=== PATIENT | female | born 1940 | race Caucasian/White ===

== ENCOUNTER 2017-02-03 07:00 | Inpatient (IN) | payer OTHER, BC, MEDICARE ==
[~2017-02-03] VITALS: Ht 171.4 cm; Wt 53.5 kg
[~2017-02-03 07:00] MED LIST: ASPIRIN EC81 M1 PO; COREG6.25 M1 PO; QUINAPRIL HCL10 M1 PO; ZOCOR20 M1 PO
--- NOTE | 2017-02-05 10:41 | Admission Core Measures ---
Acute Coronary Syndrome Inclusion Criteria ACS Diagnosis No Inpatient Core Measures LDL Reminder: If No, please order W/I first 24hr of stay Congestive Heart Failure Inclusion Criteria CHF Diagnosis No Cerebrovascular accident Inclusion Criteria CVA/TIA Diagnosis No Inpatient Core Measures Bedside Swallow Eval Reminder: If BSE failed, place ST order Antithrombotic Reminder: Order Antithrombotic Medication by end of day 2 Antithrombotic Reminder: Document Reason Antithrombotic Not ordered by end of day 2 AFIB/Flutter Reminder: If Present, add to problem list AFIB/Flutter Reminder: Order Anticoag Medication for pts with AFIB/Flutter Atherosclerosis Reminder: If Present, add to problem list LDL Reminder: If No, please order W/I first 24hr of stay PT Order Reminder: If No, please order Venous thromboembolism Inpatient Core Measures VTE Risk Factors: Age > 40, Cancer/chemo/[facility] prophylaxis d/t No contraindications No VTE Pharm Prophylaxis d/t No contraindications Inclusion Criteria - Per Current guidelines, there needs to be overlap - treatment for the first 5 days of Warfarin therapy. - Parenteral Anticoagulation (IV or SC) needs to be - given along with Warfarin therapy. VTE Diagnosis No VTE Type NONE VTE Confirmed by (Test) NONE Problem List As ranked by this Provider includes Assessment & Plan 1. Nodule of right lung HOME MEDS Home Med List Aspirin (Ecotrin*) 81 MG TABLET.DR 1 TAB PO DAILY PROPHO (Reported) Carvedilol (Coreg) 6.25 MG TABLET 1 TAB PO BID HTN (Reported) Quinapril HCl 10 MG TABLET 1 TAB PO DAILY HTN (Reported) Simvastatin (Zocor*) 20 MG TABLET 1 TAB PO DAILY CHOLESTEROL (Reported)
--- NOTE | 2017-02-05 10:56 | RADIOLOGY REPORT ---
EXAMINATION: XR PORTABLE CHEST CLINICAL INFORMATION: Post right middle lobectomy COMPARISON: 01/20/17 TECHNIQUE: Portable frontal view of the chest was obtained. FINDINGS: Monitoring devices overlie the patient. The right chest tube tip projects in the medial right apex. There is kyphosis and rotation toward the left. Calcified tortuous aorta. Calcification of the mitral annulus. There is a left ventricular configuration to the cardiac silhouette which is of overall normal size. There is no large hilar mass. There is metallic suture in the medial right lower chest. No dense consolidation in the remaining right lung. It is possible there is a tiny right apical pneumothorax with a reflection at the level of the upper portion of the posterior right third rib. There is some hypoinflation at the left lower lung. Probable skin fold projects over the periphery of the left lower chest. Embolic material in the left upper abdomen. Arthritic changes both shoulders with probable loose bodies. Partially included lower cervical instrumentation IMPRESSION: Findings consistent with right middle lobectomy. Chest tube in place. There may be a tiny right apical pneumothorax. Hypoinflation left lower lung.
--- NOTE | 2017-02-05 11:00 | Admission Certification ---
Admission Certification Certification Statement - As attending physician, I certify that at the time of - admission, based on clinical presentation, severity of - symptoms, need for further diagnostic testing and - therapeutic interventions, and risk of adverse outcomes - without in-hospital treatment, in my clinical assessment, - this patient requires an acute hospital stay for a minimum - of two nights or longer. I have also considered psychsocial - factors such as support system, advanced age, financial - issues, cognitive issues, and failed out-patient treatments, - past re-admission history, safety of patient, and lack of - compliance as applicable. Specific rationale supporting this admission is: Major chest surgery with intensive care unit stay
--- NOTE | 2017-02-05 11:04 | Operative Report ---
Operative/Inv Procedure Report Surgery Date: 02/05/17 Name of Procedure: Right middle lobectomy with mediastinal lymph node dissection Pre-Operative Diagnosis: Right middle lobe lung cancer Post-Operative Diagnosis: Same Estimated Blood Loss: less than 50ml Surgeon/Medical Information Specialist: RICHA REDDY,MARTHA Mg Anesthesia: general endotracheal tube Operative/Procedure Note Note: After placement of monitoring lines and induction of general anesthesia the double-lumen endotracheal tube was appropriately positioned with fiberoptic bronchoscopy. The patient was placed in the left lateral decubitus position and her right chest was prepped and draped in a sterile fashion. A small posterolateral thoracotomy incision was made and the chest was entered through the fifth intercostal space. The anatomy showed very clear distinction between the right upper middle and lower lobes with very sharp distinction of the major and the minor fissure. Dissection was done at the base and the pulmonary arterial branches to the middle lobe were very directly identified and secured with the Endo HARINDER vascular stapler. There was a very interesting venous drainage which was composed of 2 branches to the superior pulmonary vein and one major trunk to the inferior pulmonary vein. These were both resected with the Endo HARINDER vascular stapler. The minor fissure was completed with the Endo HARINDER thick tissue stapler. Surrounding lymph nodes at the middle lobe bronchus were swept into the specimen and the middle lobe bronchus was secured with the Endo HARINDER medium tissue cartridge. Intraoperative frozen section disclose no evidence of cancer at the bronchial stump. Lymph nodes removed from level for level VII and level IX with division of the inferior pulmonary ligament. His was insufflated under water to 30 mmHg and found to show no air leak. The fissures were sprayed with sealant and hemostasis was achieved with electrocautery and with Surgicel packing. Long-acting rib blocks were placed and the chest was drained with a 28 Turkish straight chest tube. The ribs reapproximated with pericostal sutures. The incision was closed anatomically with running Vicryl suture followed by running Vicryl subcuticular suture. The patient tolerated the procedure well and was brought to recovery room awake and extubated in stable condition. CC: ODMINGO REDDY,NICOLE Flynn
[2017-02-05 13:00] VITALS: BP 122/70
[2017-02-05 15:00] VITALS: BP 116/70
--- NOTE | 2017-02-05 15:31 | NUR ---
PT TRANSFERRED FROM PACU AT 1245. DROWSY BUT EASILY WAKES. TELEPHONE REPORT HAD BEEN RECEIVED AND BEDSIDE UPDATE WAS RECEIVED. RIGHT SIDE CHEST TUBE INTACT TO SUCTION. LEFT RADIAL A-LINE INTACT. MONITOR NSR. POC REVIEWED.
[2017-02-05 17:00] VITALS: BP 138/70
--- NOTE | 2017-02-05 17:27 | PN- Thoracic Surgery ---
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 Objective Vital Signs and I&Os Vital Signs Date Time Temp Pulse Resp B/P B/P Pulse O2 O2 Flow FiO2 Mean Ox Delivery Rate 02/05 1422 Nasal 3.0L Cannula 02/05 1300 96 Nasal 2.0L Cannula Intake & Output 02/05 0802/05 0000 02/04 1600 02/04 0800 02/04 0000 Intake Total Output Total Balance Patient 118 lb Weight Physical Exam: CV: RRR LUNGS: CLEAR ABD: SOFT, +BS EXT: WARM, CMS INTACT CHEST: CHEST TUBE INTACT WITH PLEUR EVAC SUCTION Assessment/Plan Assessment/Plan THORACIC STABLE PLAN CHEST TUBE TO WALL SUCTION TOINGH WEAN O2 ENCOURAGE IS TITRATE PAIN MEDS Core Measures/Miscellaneous Venous Thromboembolism VTE Risk Factors: Age > 40, Surgery VTE Contraindications: No Contraindications VTE Diagnosis: No VTE Type: NONE VTE Confirmed by (Test): NONE Beta Osvaldo Is Beta Osvaldo a Home Med? Yes Antibiotics Is Patient on Antibiotics? Yes
--- NOTE | 2017-02-05 17:47 | Cons- CRCU ---
RONYEVANGELINA 02/05/17 1726: General Information and HPI Consulting Request Date of Consult: 02/05/17 Requested By: Dr. Interiano Reason for Consult: RML lobectomy Source of Information: patient, old records Exam Limitations: clinical condition History of Present Illness: Ms. 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 She was admitted to [facility] for RML lobectomy. Her previous workup and imaging included a PET scan 11/10/16 revealed abnormal FDG activity in a spiculated 1.6 cm right middle lobe pulmonary nodule is most likely malignant in etiology. Increased FDG activity in the inferior right colon appears to be associated with some wall thickening and is suspicious for malignancy or inflammatory bowel disease at this site. A colonoscopy to investigate the increased FDG uptake 12/23/16 did not reveal any right sided colon lesions. She underwent a successful CT-guided right middle lobe lung biopsy 01/20/17 which revealed non- small cell CA. Other workups include negative breast including yearly mamography. She underwent a successful RML lobectomy with no evidence of cancer at the bronchial stump intraoperatively. A chest tube was placed and a post-op CXR revealed a possible tiny right apical PTX. At the time of the interview, she offered no complaints including chest pain, significant dyspnea, palpitations, lightheadedness, n/v or abdominal pain. Allergies/Medications Allergies: Coded Allergies: No Known Allergies (02/01/17) Home Med List: Aspirin (Ecotrin*) 81 MG TABLET.DR 1 TAB PO DAILY PROPHO (Reported) Carvedilol (Coreg) 6.25 MG TABLET 1 TAB PO BID HTN (Reported) Quinapril HCl 10 MG TABLET 1 TAB PO DAILY HTN (Reported) Simvastatin (Zocor*) 20 MG TABLET 1 TAB PO DAILY CHOLESTEROL (Reported) Current Medications: Current Medications Sig/Praveen Start time Last Medication Dose Route Stop Time Status Admin Acetaminophen 1,000 MG .STK-MED ONE 02/05 730 DC IV 02/05 731 Albuterol Sulfate 3 ML Q4 02/05 1800 AC 02/05 INH 1635 Aspirin Buffered 81 MG DAILY 02/06 1000 AC PO Atorvastatin Calcium 10 MG 1700 02/05 1700 AC PO Carvedilol 6.25 MG BID 02/05 2200 AC PO Cefazolin Sodium 2 GM IQ8 02/05 1630 AC N/A 1 UNIT IV 02/06 0029 Dexamethasone 8 MG .STK-MED ONE 02/05 731 DC IM 02/06 732 Docusate Sodium 100 MG BID 02/05 2200 AC PO Fentanyl Citrate 250 MCG .STK-MED ONE 02/05 730 DC IM 02/05 731 Heparin Sodium 5,000 UNIT Q8 02/05 1400 AC (Porcine) SC Hydromorphone HCl 50 MG Q24H PRN 02/05 1100 AC Sodium Chloride 45 ML IV Hydromorphone HCl 2 MG .STK-MED ONE 02/05 730 DC IM 02/05 731 Lisinopril 10 MG DAILY 02/06 1000 AC PO Midazolam HCl 2 MG .STK-MED ONE 02/05 731 DC IM 02/06 732 Ondansetron HCl 8 MG .STK-MED ONE 02/05 731 DC IM 02/06 732 Remifentanil 3 MG .STK-MED ONE 02/05 731 DC IV 02/06 732 Sodium Chloride 1,000 ML Q13H 02/05 1530 AC IV Review of Systems Review of Systems Constitutional: Reports: see HPI. Past History Medical History Blood Transfusion Hx: No Neurological: NONE Cardiovascular: hypertension Respiratory: LUNG CA FORMER SMOKER Gastrointestinal: COLON CA Surgical History Surgical History: APPY COLON RX CERVICAL FUSION Psychosocial History Where Do You Live? Home Services at Home: None Smoking Status: Former Smoker Exam & Diagnostic Data Last 24 Hrs of Vital Signs/I&O Vital Signs Date Time Temp Pulse Resp B/P B/P Pulse O2 O2 Flow FiO2 Mean Ox Delivery Rate 02/05 1422 Nasal 3.0L Cannula 02/05 1300 96 Nasal 2.0L Cannula Intake & Output 02/05 1600 02/05 0800 02/05 0000 Intake Total Output Total Balance Patient 53.524 kg Weight Last 48 Hrs of Labs/William: CBC and BEP WNL Diagnostic Data CXR Results SERVICE DATE: 02/05/17-1023 EXAM TYPE: RAD - XRY-PORTABLE CHEST XRAY EXAMINATION: XR PORTABLE CHEST CLINICAL INFORMATION: Post right middle lobectomy COMPARISON: 01/20/17 TECHNIQUE: Portable frontal view of the chest was obtained. FINDINGS: Monitoring devices overlie the patient. The right chest tube tip projects in the medial right apex. There is kyphosis and rotation toward the left. Calcified tortuous aorta. Calcification of the mitral annulus. There is a left ventricular configuration to the cardiac silhouette which is of overall normal size. There is no large hilar mass. There is metallic suture in the medial right lower chest. No dense consolidation in the remaining right lung. It is possible there is a tiny right apical pneumothorax with a reflection at the level of the upper portion of the posterior right third rib. There is some hypoinflation at the left lower lung. Probable skin fold projects over the periphery of the left lower chest. Embolic material in the left upper abdomen. Arthritic changes both shoulders with probable loose bodies. Partially included lower cervical instrumentation IMPRESSION: Findings consistent with right middle lobectomy. Chest tube in place. There may be a tiny right apical pneumothorax. Hypoinflation left lower lung. Assessment/Plan Impression/Plan: Ms. Jo is a 76 year old woman with a PMH of HTN and HLD who with recently diagnosed RML non-small cell CA who was admitted to [facility] for RML lobectomy. She underwent a successful RML lobectomy with no evidence of cancer at the bronchial stump intraoperatively. A chest tube was placed and a post-op CXR revealed a possible tiny right apical PTX. Problem List RML non-small cell lung Ca s/p RML lobectomy HTN HLD Recommendations: * Continue home meds for HTN, carvedilol 6.25 mg BID and start lisinopril [address] of quinipril 10mg (home med) * Start atorvastatin 10mg in place of simvastatin 20 (home dose) * Pain control, diet and dvt ppx per surgery * Chest tube in place to suction, and management/removal will be dictated by surgery. Follow up CXR in the am. Post-op ABx, Cefazolin 2g q8h per surgery. * Follow up RML and LN pathology/IHC FULL CODE Consult Acknowledgment - Thank you for your consult request. POWER REDDY,Gee JAIN 02/06/17 0935: General Information and HPI Allergies/Medications Current Medications: Current Medications Sig/Praveen Start time Last Medication Dose Route Stop Time Status Admin Albuterol Sulfate 3 ML Q4 02/05 1800 AC 02/06 INH 0608 Aspirin Buffered 81 MG DAILY 02/06 1000 AC PO Atorvastatin Calcium 10 MG 1700 02/05 1700 AC 02/05 PO 1932 Carvedilol 6.25 MG BID 02/05 2200 AC 02/05 PO 2200 Cefazolin Sodium 2 GM IQ8 02/05 1630 DC 02/06 N/A 1 UNIT IV 02/06 0029 0035 Docusate Sodium 100 MG BID 02/05 2200 AC 02/05 PO 2200 Heparin Sodium 5,000 UNIT Q8 02/05 1400 AC 02/06 (Porcine) SC 0634 Hydromorphone HCl 50 MG Q24H PRN 02/05 1100 AC Sodium Chloride 45 ML IV Lisinopril 10 MG DAILY 02/06 1000 AC PO Sodium Chloride 1,000 ML Q13H 02/05 1530 AC 02/05 IV 2243 Assessment/Plan Other Findings/Comments: I have personally seen and examined the patient and agree with the resident's assessment and plan as detailed above. We will continue the plan as recommended. I have discussed the plan of care with the housestaff and asked them to contact me should the patient's condition change or deteriorate. Consult Acknowledgment - Thank you for your consult request.
[2017-02-05 19:00] VITALS: BP 120/70
[2017-02-05 20:00] VITALS: BP 110/60
[2017-02-05 22:00] VITALS: BP 106/46
[2017-02-06] VITALS (10 sets, daily range): BP systolic 90–124; BP diastolic 39–60
--- NOTE | 2017-02-06 | NUR ---
PATIENT ALERT AND ORIENTED. MONITOR SINUS RHYTHM.BP VIA L RADIAL GKVFT=991/37. CHEST TUBE TO THORASEAL TO SUCTION. NO LEAK NOTED. SMALL AMOUNT BLOODY DRAINAGE.DRESSING OVER CHEST TUBE DRY AND INTACT. DRESSING TO R BACK WITH MODERATE AMOUNT BLOODY DRAINAGE.NO DYSPNEA ON EXERTION. TOLERATING PO FLUIDS WELL. IVF AT 75 ML/HR. REPORTS LITTLE PAIN AT REST. INCREASES WITH MOVEMENT. 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
[2017-02-06 05:24] LABS: ABSOLUTE BASOPHIL COUNT 0 /CUMM (0.0-0.2); ABSOLUTE EOSINOPHIL COUNT 0.2 /CUMM (0.0-0.7); ABSOLUTE GRANULOCYTE CT 10.5 /CUMM (1.4-6.5); ABSOLUTE LYMPH COUNT 1.3 /CUMM (1.2-3.4); ABSOLUTE MONOCYTE COUNT 1.1 /CUMM (0.10-0.60); BASOPHIL % 0.2 % (0.0-2.0); EOSINOPHIL % 1.3 % (0-5); GRANULOCYTE % 80.6 % (42.2-75.2); HEMATOCRIT 35.4 % (37-47); MEAN CORPUSCULAR HGB CONC 32.9 G/DL (33.0-37.0); MEAN CORPUSCULAR VOLUME 85.2 FL (81.0-99.0); MEAN PLATELET VOLUME 8.1 FL (7.4-10.4); PLATELET COUNT 213 /CUMM (130-400); RBC DISTRIBUTION WIDTH 13.5 % (11.5-14.5); RED BLOOD CELL CT 4.16 /CUMM (4.20-5.40)
--- NOTE | 2017-02-06 05:54 | PN- Thoracic Surgery ---
Subjective Subjective: pod#1 s/p right lung lobectomy no major issues overnight chest pain at chest tube site deneis anterior chest pain, sob, mild nausea Objective Vital Signs and I&Os Vital Signs Date Time Temp Pulse Resp B/P B/P Pulse O2 O2 Flow FiO2 Mean Ox Delivery Rate 02/06 0148 96 Nasal 1.0L Cannula 02/06 0000 98.1 80 20 100/60 / 0000 98.1 80 20 100/60 97 Nasal 1.0L Cannula 02/050 62 20 106/46 02/05 2200 62 20 106/46 02/05 2027 96 Nasal 1.0L Cannula 02/06 2000 98.1 76 24 110/60 02/06 2000 96 Nasal 3.0L Cannula 02/05 1900 98.0 70 16 120/70 02/05 1700 98.0 70 16 138/70 02/05 1600 98 Non 3.0L ReBreather 02/05 1500 98.0 70 20 116/70 02/05 1422 Nasal 3.0L Cannula 02/05 1300 97.6 70 20 122/70 02/05 1300 96 Nasal 2.0L Cannula Intake & Output 02/06 0800 /08 0000 02/05 1600 02/05 0800 02/05 0000 02/04 1600 Intake Total 583 1000 Output Total 298 325 Balance 285 675 Intake, IV 283 600 Intake, Oral 300 400 Output, Chest 8 25 Tube Drainage Output, Urine 290 300 Patient 118 lb Weight Physical Exam: cv: rrr lungs: clear abd: soft, +bs ext: warm, distal cms intact chest tube: no leak sanguinous drainage Assessment/Plan Assessment/Plan stable plan f/u am labs and cxr oob to chair today wean off supervisor marble to po meds Core Measures/Miscellaneous Venous Thromboembolism VTE Risk Factors: Age > 40, Surgery VTE Contraindications: No Contraindications VTE Diagnosis: No VTE Type: NONE VTE Confirmed by (Test): NONE Beta Osvaldo Is Beta Osvaldo a Home Med? Yes Antibiotics Is Patient on Antibiotics? Yes
--- NOTE | 2017-02-06 08:04 | RADIOLOGY REPORT ---
EXAMINATION: XR PORTABLE CHEST CLINICAL INFORMATION: Pneumothorax. Status post right middle lobectomy. COMPARISON: Recent priors. TECHNIQUE: Portable AP erect view of the chest was obtained. FINDINGS: The right chest tube remains in stable position with the tip at the apex of the right chest. No pneumothorax is seen. There is a small amount of subcutaneous emphysema over the upper right chest. There is a small right pleural effusion. IMPRESSION: 1. No pneumothorax with right chest tube in stable position. 2. Small right pleural effusion.
--- NOTE | 2017-02-06 09:50 | PN- CRCU ---
Subjective HPI/Critical Care Issues: The patient is awake and alert. She reports feeling some pain at the site of her chest tube. Otherwise she denies shortness of breath, cough or chest congestion. She has had no overnight events reported. She is afebrile and hemodynamically stable. Objective Current Medications: Current Medications Sig/Praveen Start time Last Medication Dose Route Stop Time Status Admin Albuterol Sulfate 3 ML Q4 02/05 1800 AC 02/06 INH 0608 Aspirin Buffered 81 MG DAILY 02/06 1000 AC PO Atorvastatin Calcium 10 MG 1700 02/05 1700 AC 02/05 PO 1932 Carvedilol 6.25 MG BID 02/05 2200 AC 02/05 PO 2200 Cefazolin Sodium 2 GM IQ8 02/05 1630 DC 02/06 N/A 1 UNIT IV 02/06 0029 0035 Docusate Sodium 100 MG BID 02/05 2200 AC 02/05 PO 2200 Heparin Sodium 5,000 UNIT Q8 02/05 1400 AC 02/06 (Porcine) SC 0634 Hydromorphone HCl 50 MG Q24H PRN 02/05 1100 AC Sodium Chloride 45 ML IV Lisinopril 10 MG DAILY 02/06 1000 AC PO Sodium Chloride 1,000 ML Q13H 02/05 1530 AC 02/05 IV 2243 Vital Signs & I&O Last 24 Hrs of Vitals and I&O: Vital Signs Date Time Temp Pulse Resp B/P B/P Pulse O2 O2 Flow FiO2 Mean Ox Delivery Rate 02/06 0600 68 18 124/50 02/06 0400 98.2 72 18 120/60 02/06 0400 96 Nasal 1.0L Cannula 02/06 0200 72 18 106/39 02/06 0148 96 Nasal 1.0L Cannula 02/06 0000 98.1 80 20 100/60 02/06 0000 98.1 80 20 100/60 97 Nasal 1.0L Cannula 02/06 0000 97 Nasal 1.0L Cannula 02/050 62 20 106/46 02/05 2200 62 20 106/46 02/05 2027 96 Nasal 1.0L Cannula 02/06 2000 98.1 76 24 110/60 02/06 2000 96 Nasal 3.0L Cannula 02/05 1900 98.0 70 16 120/70 02/05 1700 98.0 70 16 138/70 02/05 1600 98 Non 3.0L ReBreather 02/05 1500 98.0 70 20 116/70 02/05 1422 Nasal 3.0L Cannula 02/05 1300 97.6 70 20 122/70 02/05 1300 96 Nasal 2.0L Cannula Intake & Output 02/06 1600 02/06 0800 02/06 0000 Intake Total 862 1583 Output Total 547 623 Balance 315 960 Intake, IV 572 883 Intake, Oral 290 700 Output, Chest 27 33 Tube Drainage Output, Urine 520 590 Exam General Appearance: no apparent distress, alert, awake, comfortable Head: atraumatic, normal appearance Neck: supple Respiratory: no respiratory distress, lungs clear Cardiovascular: regular rate/rhythm Abdomen: normal bowel sounds, soft, non-tender Extremities: normal inspection, no edema Skin: intact, normal color, warm/dry Results Last 24 Hrs of Lab Results: Laboratory Tests 02/06/17 0415: Anion Gap 9, Estimated GFR > 60, BUN/Creatinine Ratio 17.1, Phosphorus 3.6, Magnesium 1.7, CBC w Diff NO MAN DIFF REQ, RBC 4.16 L, MCV 85.2, MCH 28.0, RDW 13.5, MPV 8.1, Gran % 80.6 H, Lymphocytes % 9.8 L, Monocytes % 8.1, Eosinophils % 1.3, Basophils % 0.2, Absolute Granulocytes 10.5 H, Absolute Lymphocytes 1.3, Absolute Monocytes 1.1 H, Absolute Eosinophils 0.2, Absolute Basophils 0, PUBS MCHC 32.9 L Diagnostic Data CXR Findings: 1. No pneumothorax with right chest tube in stable position. 2. Small right pleural effusion. Impression/Plan Impression/Plan Impression/Plan: 1. RML non-small cell lung Ca s/p RML lobectomy. 2. HTN. 3. HLD. Recommendations: * Chest tube management as per CT surgery. * Continue antihypertensive medications. * Discontinue A-line. * Continue with pain control. * Discontinue Rojas catheter. * Follow-up pathology. * DVT prophylaxis at all times. * Out of bed to chair. * Total respiratory care/postoperative care as per protocol. * Continue all supportive care.
--- NOTE | 2017-02-06 10:44 | PN- CRCU ---
Subjective HPI/Critical Care Issues: I saw the patient at bed side today. pt was sitting, comfortable at rest, afebrile, not dyspnenic, tachypneic. no active issues. oral feeds started. chest tube in place. Objective Current Medications: Current Medications Sig/Praveen Start time Last Medication Dose Route Stop Time Status Admin Albuterol Sulfate 3 ML Q4 02/05 1800 AC 02/06 INH 1013 Aspirin Buffered 81 MG DAILY 02/06 1000 AC PO Atorvastatin Calcium 10 MG 1700 02/05 1700 AC 02/05 PO 1932 Carvedilol 6.25 MG BID 02/05 2200 AC 02/05 PO 2200 Cefazolin Sodium 2 GM IQ8 02/05 1630 DC 02/06 N/A 1 UNIT IV 02/06 0029 0035 Docusate Sodium 100 MG BID 02/05 2200 AC 02/05 PO 2200 Heparin Sodium 5,000 UNIT Q8 02/05 1400 AC 02/06 (Porcine) SC 0634 Hydromorphone HCl 50 MG Q24H PRN 02/05 1100 AC Sodium Chloride 45 ML IV Lisinopril 10 MG DAILY 02/06 1000 AC PO Magnesium Oxide 400 MG ONE ONE 02/06 1015 DC PO 02/06 1016 Sodium Chloride 1,000 ML Q13H 02/05 1530 AC 02/05 IV 2243 Vital Signs & I&O Last 24 Hrs of Vitals and I&O: Vital Signs Date Time Temp Pulse Resp B/P B/P Pulse O2 O2 Flow FiO2 Mean Ox Delivery Rate 02/06 0600 68 18 124/50 02/06 0400 98.2 72 18 120/60 02/06 0400 96 Nasal 1.0L Cannula 02/06 0200 72 18 106/39 02/06 0148 96 Nasal 1.0L Cannula 02/06 0000 98.1 80 20 100/60 02/06 0000 98.1 80 20 100/60 97 Nasal 1.0L Cannula 02/06 0000 97 Nasal 1.0L Cannula 02/05 2200 62 20 106/46 02/050 62 20 106/46 02/05 2027 96 Nasal 1.0L Cannula 02/06 2000 98.1 76 24 110/60 02/06 2000 96 Nasal 3.0L Cannula 02/05 1900 98.0 70 16 120/70 02/05 1700 98.0 70 16 138/70 02/05 1600 98 Non 3.0L ReBreather 02/05 1500 98.0 70 20 116/70 02/05 1422 Nasal 3.0L Cannula 02/05 1300 97.6 70 20 122/70 02/05 1300 96 Nasal 2.0L Cannula Intake & Output 02/06 1600 02/06 0800 02/06 0000 Intake Total 862 1583 Output Total 547 623 Balance 315 960 Intake, IV 572 883 Intake, Oral 290 700 Output, Chest 27 33 Tube Drainage Output, Urine 520 590 Exam General Appearance: well developed/nourished, no apparent distress, alert, awake , anxious, comfortable, thin Head: normal appearance Neck: normal inspection, supple, full range of motion Respiratory: normal breath sounds, chest non-tender, no respiratory distress, quiet respiration Cardiovascular: regular rate/rhythm Abdomen: normal bowel sounds Extremities: normal inspection Skin: intact, normal color Results Last 24 Hrs of Lab Results: Laboratory Tests 02/06/17 0415: Anion Gap 9, Estimated GFR > 60, BUN/Creatinine Ratio 17.1, Phosphorus 3.6, Magnesium 1.7, CBC w Diff NO MAN DIFF REQ, RBC 4.16 L, MCV 85.2, MCH 28.0, RDW 13.5, MPV 8.1, Gran % 80.6 H, Lymphocytes % 9.8 L, Monocytes % 8.1, Eosinophils % 1.3, Basophils % 0.2, Absolute Granulocytes 10.5 H, Absolute Lymphocytes 1.3, Absolute Monocytes 1.1 H, Absolute Eosinophils 0.2, Absolute Basophils 0, PUBS MCHC 32.9 L Impression/Plan Impression/Plan Impression/Plan: Ms. 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 She was admitted to [facility] for RML lobectomy.She underwent a successful CT- guided right middle lobe lung biopsy 01/20/17 which revealed non-small cell CA. Other workups include negative breast including yearly mamography.She underwent a successful RML lobectomy with no evidence of cancer at the bronchial stump intraoperatively. A chest tube was placed and a post-op CXR revealed a possible tiny right apical PTX. plan: Recommendations: * Chest tube management as per CT surgery. * Continue antihypertensive medications. * Continue with pain control. * Follow-up pathology. * DVT prophylaxis at all times. * Total respiratory care/postoperative care as per protocol. * replace elctrolytes if needed. Code Status: Full Code
--- NOTE | 2017-02-06 13:21 | RADIOLOGY REPORT ---
EXAMINATION: XR PORTABLE CHEST CLINICAL INFORMATION: Status post lobectomy with postoperative chest pain. Chest tube to waterseal this morning. Evaluate pneumothorax. COMPARISON: CXR from 02/06/2017 at 6:35 AM TECHNIQUE: Portable frontal view of the chest was obtained. FINDINGS: In this patient who is status post recent middle lobectomy, there is mild pulmonary hypoinflation, bibasilar atelectasis and persistent small right pleural effusion. A faintly visible line projecting 0.2 cm below the margin of the right posterolateral third rib could be due to minimal postoperative pneumothorax. The right thoracostomy tube is in stable position, its tip located in the medial right apex. There is soft tissue emphysema of the inferolateral chest wall. There are multiple old left rib fractures. IMPRESSION: 1. Bibasilar atelectasis and small right pleural effusion. 2. There is a very small (questionable) right apical pneumothorax. Right thoracostomy tube remains in stable position at the medial right apex.
--- NOTE | 2017-02-06 18:11 | NUR ---
PT UNABLE TO VOID, BLADER SCANED FOR OVER 400 MLS. SURGICAL PA NOTIFIED AND PT STRAIGHT CATHED FOR 400 MLS. SHE DOES HAVE A PROLAPSED BLADDER.
--- NOTE | 2017-02-06 23:42 | NUR ---
PT C/O UNABLE TO VOID BLADDER SCAN DONE 350ML WIN HENRY NOTIFIED INDWELLING SOMMERS INSERTED BY Carlos PETE URINE CULTURE SENT. LARGE AMT 400ML SEROUS FLUID FROM CHEST TUBE pA AWARE DRSG D/I. 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
[2017-02-07] VITALS: BP 94/54
[2017-02-07 04:00] VITALS: BP 90/50
--- NOTE | 2017-02-07 04:51 | PN- Thoracic Surgery ---
Subjective Subjective: complains of pain at CT insertion site, wants tube out and wants to go home. Denies SOB or CP increased CT output last evenincc (compared to previous <50/shift) mcelroy inserted overnight for retention. Tmax overnight 100.8. o2 sat to 88% on RA while sleeping- now 99% on 2L CT remains in place, on waterseal- tiny apical ptx on CXR yesterday. Objective Vital Signs and I&Os Vital Signs Date Time Temp Pulse Resp B/P B/P Pulse O2 O2 Flow FiO2 Mean Ox Delivery Rate 02/07 0223 100.8 02/07 0223 93 Room Air 02/07 0000 92 02/06 2254 70 105/84 02/07 2000 99.6 72 20 90/42 02/06 2000 92 Room Air 02/06 1831 92 Room Air Room Air 02/06 1812 70 22 100/60 /08 1600 70 20 100/54 /08 1400 70 20 100/50 08 1400 70 20 100/60 02/06 1159 70 120/80 02/06 1159 70 120/70 02/06 1020 95 Nasal 1.0L Cannula 02/06 1000 70 20 90/50 /08 0800 70 18 92/45 /08 0800 98 Nasal 1.0L Cannula 02/06 0600 68 18 124/50 Intake & Output 02/07 0800 / 0000 / 1600 /08 0800 /08 0000 02/05 1600 Intake Total 1300 1400 057 345 8627 Output Total 1210 120 547 298 325 Balance 90 1280 315 285 675 Intake, IV 600 600 572 283 600 Intake, Oral 700 800 290 300 400 Output, Chest 360 27 8 25 Tube Drainage Output, Urine 850 120 520 290 300 Patient 118 lb Weight Physical Exam: GEN: NAD CARD: S1S2 RRR PULM: decreased bs throughout. R CT dressing bloody staining, ttp at incision. throacotomy incision dsg changed- steris w dried serosang drainage, ttp at incision, no erythema, no active drainage. ABD: soft nt : mcelroy draining clear yellow urine, approx 600 in bag EXT: calves soft nt bl Current Medications: Current Medications Sig/Praveen Start time Last Medication Dose Route Stop Time Status Admin Acetaminophen 650 MG Q6-PRN PRN 02/07 0100 AC 07/09 PO 0223 Albuterol Sulfate 3 ML Q4 02/05 1800 AC 02/07 INH 0157 Aspirin Buffered 81 MG DAILY 02/06 1000 AC 02/06 PO 1159 Atorvastatin Calcium 10 MG 1700 02/05 1700 AC 02/06 PO 1558 Carvedilol 6.25 MG BID 02/05 2200 AC 02/06 PO 2254 Docusate Sodium 100 MG BID 02/05 2200 AC 02/06 PO 2254 Heparin Sodium 5,000 UNIT Q8 02/05 1400 AC 02/06 (Porcine) SC 2253 Hydromorphone HCl 50 MG Q24H PRN 02/05 1100 AC Sodium Chloride 45 ML IV Lisinopril 10 MG DAILY 02/06 1000 AC 02/06 PO 1159 Magnesium Oxide 400 MG ONE ONE 02/06 1015 DC 02/06 PO 02/06 1016 1159 Sodium Chloride 1,000 ML Q13H 02/05 1530 DC 02/05 IV 2243 Results Last 48 Hours of Labs: labs pending Recent Imaging Studies: 02/07/17: portable CXR- tiny apical ptx right portable cxr pdg Assessment/Plan Assessment/Plan A: POD2 sp RM Lobectomy, with low grade temp and desat overnight ?atelectasis, w tiny apical ptx on cxr yesterday with CT on waterseal and increased drainage last evening, with mcelroy inserted overnight for retention complicated by prolapse P: needs oob, IST, TRC labs pdg cxr pdg- keep on waterseal, ?dc tube if cxr ok and drainage slows dc psychiatric registered nurse once ct out cont mcelroy- ?void trial vs. uro consult reg diet, cont current meds will dw attending Core Measures/Miscellaneous Venous Thromboembolism VTE Risk Factors: Age > 40, Surgery VTE Contraindications: No Contraindications VTE Diagnosis: No VTE Type: NONE VTE Confirmed by (Test): NONE Beta Osvaldo Is Beta Osvaldo a Home Med? Yes Antibiotics Is Patient on Antibiotics? Yes
--- NOTE | 2017-02-07 07:33 | RADIOLOGY REPORT ---
EXAMINATION: XR PORTABLE CHEST CLINICAL INFORMATION: Postop. Pneumothorax. COMPARISON: Previous chest x-rays most recent from yesterday TECHNIQUE: Portable frontal view of the chest was obtained. FINDINGS: The patient is rotated to the left. The right lung apex is not included in the [id number]. The cardiac and mediastinal contours are stable. There is a right chest tube unchanged in position. There is question of a tiny right apical pneumothorax. There is atelectasis or small infiltrate at the lung bases. There is right lateral pleural thickening. There is blunting of the right lateral costophrenic angle questionable for tiny right pleural effusion. There is a minimal right chest wall subcutaneous emphysema. IMPRESSION: Stable position of right chest tube. Question tiny right apical pneumothorax. Atelectasis or airspace disease at the lung bases.
--- NOTE | 2017-02-07 07:42 | NUR ---
LATE ENTRY O2 SAT TO 80 AFTER RESP TREATMENT, DEEP BREATHING AND COUGHING PRACTICED PLACED ON NASAL O2 AT 2L AT 0300 O2 SAT UP TO 92% PT DENIES DYSPNEA, PA AWARE CHEST TUBE DRSG CHANGED BY PA. AUTO CUFF NOT CORRELATE WITH CUFF PRESSURE.
[2017-02-07 08:00] VITALS: BP 90/50; BP 92/50
--- NOTE | 2017-02-07 08:31 | PN- Housestaff ---
Subjective Review of Systems Constitutional: Reports: see HPI. Objective Last 24 Hrs of Vital Signs/I&O Vital Signs Date Time Temp Pulse Resp B/P B/P Pulse O2 O2 Flow FiO2 Mean Ox Delivery Rate 02/07 0532 98.4 02/07 0400 98.4 88 18 90/50 / 0400 92 Nasal 2.0L Cannula 02/07 0223 100.8 02/07 0223 93 Room Air 02/07 0000 100.8 70 20 94/54 07/ 0000 92 07/ 0000 100.8 70 20 94/54 92 Room Air / 2254 70 105/84 02/07 2000 99.6 72 20 90/42 02/06 2000 92 Room Air 02/06 1831 92 Room Air Room Air 02/06 1812 70 22 100/60 /08 1600 70 20 100/54 /08 1400 70 20 100/50 /08 1400 70 20 100/60 /08 1159 70 120/80 / 1159 70 120/70 / 1020 95 Nasal 1.0L Cannula 02/06 1000 70 20 90/50 Intake & Output / 1600 / 0800 / 0000 Intake Total 700 1300 Output Total 570 1210 Balance 130 90 Intake, IV 600 600 Intake, Oral 100 700 Output, Chest 360 Tube Drainage Output, 20 Drainage Output, Urine 550 850 Physical Exam General Appearance: No Acute Distress Current Medications: Current Medications Sig/Praveen Start time Last Medication Dose Route Stop Time Status Admin Acetaminophen 650 MG Q6-PRN PRN 02/07 0100 AC 02/07 PO 0223 Albuterol Sulfate 3 ML Q4 02/05 1800 AC 02/07 INH 0605 Aspirin Buffered 81 MG DAILY 02/06 1000 AC 02/06 PO 1159 Atorvastatin Calcium 10 MG 1700 02/05 1700 AC 02/06 PO 1558 Carvedilol 6.25 MG BID 02/05 2200 AC 02/06 PO 2254 Docusate Sodium 100 MG BID 02/05 2200 AC 02/06 PO 2254 Heparin Sodium 5,000 UNIT Q8 02/05 1400 AC 02/07 (Porcine) SC 0531 Hydromorphone HCl 50 MG Q24H PRN 02/05 1100 AC Sodium Chloride 45 ML IV Lisinopril 10 MG DAILY 02/06 1000 AC 02/06 PO 1159 Magnesium Oxide 400 MG ONE ONE 02/06 1015 DC 02/06 PO 02/06 1016 1159 Sodium Chloride 1,000 ML Q13H 02/05 1530 DC 02/05 IV 2243 Last 24 Hrs of Lab/William Results Last 24 Hrs of Labs/Mics: Laboratory Tests 02/07/17 0500: Sodium Cancelled, Potassium Cancelled, Chloride Cancelled, Carbon Dioxide Cancelled, Anion Gap Cancelled, BUN Cancelled, Creatinine Cancelled, Glucose Cancelled, Calcium Cancelled, Phosphorus Cancelled, Magnesium Cancelled, Total Bilirubin Cancelled, AST Cancelled, ALT Cancelled, Albumin Cancelled 02/07/17 0445: Anion Gap 5, Estimated GFR > 60, BUN/Creatinine Ratio 14.3 Microbiology 02/06 2240 URINE ROUT: Urine Culture - RES
--- NOTE | 2017-02-07 10:32 | PN- Resident CRCU ---
Subjective HPI/CRCU Issues: Mr Jo was stable overnight. No overnight events. Blood pressure remained stable. Continues to have pain at the site of chest tube insertion. Chest tube draining well. Yesterday, a Rojas catheter was placed. 24 Hour Events: MAXIMUM TEMPERATURE 100.8, heart rate in the range of 70-84, normal sinus rhythm , respiration in the range of 18-24, blood pressure systolic 90-104/diastolic 60 -70. Currently on 2 L supplemental oxygen-nasal cannula, oxygen saturation in the range of 92-96%. Objective Vital Signs & I&O Last 8 Hrs of Vitals and I&O: Vital Signs Date Time Temp Pulse Resp B/P B/P Pulse O2 O2 Flow FiO2 Mean Ox Delivery Rate 02/07 0938 92 Room Air 02/07 0532 98.4 02/07 0400 98.4 88 18 90/50 / 0400 92 Nasal 2.0L Cannula 02/07 0223 100.8 / 0223 93 Room Air 07/ 0000 100.8 70 20 94/54 07/09 0000 92 07/09 0000 100.8 70 20 94/54 92 Room Air 07/08 2254 70 105/84 /08 1999 99.6 72 20 90/42 /08 2000 92 Room Air /08 1831 92 Room Air Room Air 07/08 1812 70 22 100/60 07/08 1600 70 20 100/54 07/08 1400 70 20 100/50 07/08 1400 70 20 100/60 07/08 1159 70 120/80 07/08 1159 70 120/70 Intake & Output / 1600 /09 0800 07/ 0000 Intake Total 700 1300 Output Total 570 1210 Balance 130 90 Intake, IV 600 600 Intake, Oral 100 700 Output, Chest 360 Tube Drainage Output, 20 Drainage Output, Urine 550 850 Exam General Appearance: alert, awake, comfortable Head: atraumatic Ears, Nose, Throat: normal pharynx Neck: normal inspection Respiratory: normal breath sounds Cardiovascular: regular rate/rhythm Gastrointestinal: normal bowel sounds, soft Extremities: normal inspection Cranial Nerves: normal hearing, normal speech, PERRL Skin: normal color, surgery site is normal. Skin Temp/Moisture Exam: Warm/Dry Sepsis Skin Exam (color): Normal for Ethnicity Current Medications: Current Medications Sig/Praveen Start time Last Medication Dose Route Stop Time Status Admin Acetaminophen 650 MG Q6-PRN PRN 02/07 0100 AC 02/07 PO 0223 Albuterol Sulfate 3 ML EVERY 4 HRS/AWAKE 02/07 1200 AC 02/07 INH 1649 Albuterol Sulfate 3 ML Q4 02/05 1800 DC 02/07 INH 0936 Aspirin Buffered 81 MG DAILY 02/06 1000 AC 02/07 PO 1342 Atorvastatin Calcium 10 MG 1700 02/05 1700 AC 02/06 PO 1558 Carvedilol 6.25 MG BID 02/05 2200 AC 02/07 PO 1342 Docusate Sodium 100 MG BID 02/05 2200 AC 02/07 PO 1342 Heparin Sodium 5,000 UNIT Q8 02/05 1400 AC 02/07 (Porcine) SC 0531 Hydromorphone HCl 1 MG Q2-3 HRS NEEDED.. 02/07 1000 AC IV Hydromorphone HCl 50 MG Q24H PRN 02/05 1100 DC Sodium Chloride 45 ML IV Ketorolac 15 MG Q6P PRN 02/07 1000 AC 02/07 Tromethamine IV 1342 Lisinopril 10 MG DAILY 02/06 1000 AC 02/07 PO 1342 Oxycodone HCl 5 MG Q4-6 PRN PRN 02/07 1000 AC PO Oxycodone HCl 10 MG Q4-6 PRN PRN 02/07 1000 AC PO Sodium Chloride 1,000 ML Q13H 02/05 1530 DC 02/05 IV 2243 Impression/Plan Impression/Problem List Impression: She is a 76-year-old woman with a history of non-small cell lung cancer of right middle lobe status post right middle lobe lobectomy, hypertension is being managed postoperatively in the ICU. Differential diagnosis: 1. Post operative managment of RML lobectomy Lab findings in the last 24 hours: Chest x-ray-shows stable position of right chest tube. Possible pneumothorax ( right apical), which appears to be tiny. Below is the problem list and plan: 1. Respiratory: POD day 2. Right middle lobectomy with mediastinal lymph node dissection, oxygen saturation above 92%, and currently on 2 L. Continue to monitor closely. #2 infectious-of 100.8, likely due to atelectasis. WBC 13.0 (02/06/2017). Labs from today pending. Monitor for any fever, change in vital signs. Currently off antibiotics. #3 cardiovascular-systolic blood pressure in the range of 90-100s. Currently on lisinopril 10 mg by mouth daily, carvedilol 6.25 mg by mouth twice a day. Continue aspirin daily. #4 hematology-H&H, hemoglobin 11.7 (baseline 13.0). Labs pending from today. Acute drop in H&H likely from surgery. Continue to monitor closely. Platelet count within normal limits. DVT prophylaxis with subcutaneous heparin. #5 metabolic-currently on a diet, and blood glucose levels are not being checked. No history of diabetes. Electrolytes within normal limits. Renal function within normal limits. Lab findings are pending from today. #6 alimentary-regular diet, tolerating well. #7 neurology-pain management- oxycodone 10 mg every 4-6 hours when necessary, overlaid with oxycodone 5 mg every 4-6 hours when necessary. Tramadol 50 mg every 6 when necessary IV, IV Dilaudid 1 mg every 2-3 hours when necessary. Problem List: 1. Non-small cell cancer of right lung Pain Ratin Pain Location: upper back, at the site of insertion Tomorrow's Labs & Rationales: cbc bep Plan DVT/Prophylaxis: mechanical Code Status: Full Code
--- NOTE | 2017-02-07 11:53 | PN- CRCU ---
Subjective HPI/Critical Care Issues: The patient is awake and alert. She is feeling better overall. She complains of pain at the site of insertion. She denies any new complaints. Objective Current Medications: Current Medications Sig/Praveen Start time Last Medication Dose Route Stop Time Status Admin Acetaminophen 650 MG Q6-PRN PRN 02/07 0100 AC 02/07 PO 0223 Albuterol Sulfate 3 ML EVERY 4 HRS/AWAKE 02/07 1200 AC INH Albuterol Sulfate 3 ML Q4 02/05 1800 DC 02/07 INH 0936 Aspirin Buffered 81 MG DAILY 02/06 1000 AC 02/06 PO 1159 Atorvastatin Calcium 10 MG 1700 02/05 1700 AC 02/06 PO 1558 Carvedilol 6.25 MG BID 02/05 2200 AC 02/06 PO 2254 Docusate Sodium 100 MG BID 02/05 2200 AC 02/06 PO 2254 Heparin Sodium 5,000 UNIT Q8 02/05 1400 AC 02/07 (Porcine) SC 0531 Hydromorphone HCl 1 MG Q2-3 HRS NEEDED.. 02/07 1000 AC IV Hydromorphone HCl 50 MG Q24H PRN 02/05 1100 DC Sodium Chloride 45 ML IV Ketorolac 15 MG Q6P PRN 02/07 1000 AC Tromethamine IV Lisinopril 10 MG DAILY 02/06 1000 AC 02/06 PO 1159 Oxycodone HCl 5 MG Q4-6 PRN PRN 02/07 1000 AC PO Oxycodone HCl 10 MG Q4-6 PRN PRN 02/07 1000 AC PO Sodium Chloride 1,000 ML Q13H 02/05 1530 DC 02/05 IV 2243 Vital Signs & I&O Last 24 Hrs of Vitals and I&O: Vital Signs Date Time Temp Pulse Resp B/P B/P Pulse O2 O2 Flow FiO2 Mean Ox Delivery Rate 02/07 938 92 Room Air 02/07 0532 98.4 02/08 400 98.4 88 18 90/50 02/08 400 92 Nasal 2.0L Cannula 02/07 223 100.8 02/07 022 93 Room Air 02/07 0000 100.8 70 20 94/54 02/07 0000 92 02/07 0000 100.8 70 20 94/54 92 Room Air 02/06 2254 70 105/84 02/07 2000 99.6 72 20 90/42 02/07 2000 92 Room Air 02/06 1831 92 Room Air Room Air 02/06 1812 70 22 100/60 /08 1600 70 20 100/54 07/08 1400 70 20 100/50 07/08 1400 70 20 100/60 07/08 1159 70 120/80 07/08 1159 70 120/70 Intake & Output / 1600 07/09 0800 07/ 0000 Intake Total 700 1300 Output Total 570 1210 Balance 130 90 Intake, IV 600 600 Intake, Oral 100 700 Output, Chest 360 Tube Drainage Output, 20 Drainage Output, Urine 550 850 Exam General Appearance: intubated, currently not distressed, without agitation Head: atraumatic, normal appearance Neck: normal inspection, supple Respiratory: no respiratory distress, decreased breath sounds Cardiovascular: regular rate/rhythm Abdomen: normal bowel sounds, soft, non-tender Extremities: no edema Skin: intact, normal color, warm/dry Results Last 24 Hrs of Lab Results: Laboratory Tests 02/07/17 0500: Sodium Cancelled, Potassium Cancelled, Chloride Cancelled, Carbon Dioxide Cancelled, Anion Gap Cancelled, BUN Cancelled, Creatinine Cancelled, Glucose Cancelled, Calcium Cancelled, Phosphorus Cancelled, Magnesium Cancelled, Total Bilirubin Cancelled, AST Cancelled, ALT Cancelled, Albumin Cancelled 02/07/17 0445: Anion Gap 5, Estimated GFR > 60, BUN/Creatinine Ratio 14.3 Impression/Plan Impression/Plan Impression/Plan: 1. RML non-small cell lung cancer s/p RML lobectomy. 2. HTN. 3. HLD. Recommendations: * Chest tube management as per CT surgery - to be discontinued by surgery. * Continue antihypertensive medications. * Continue with pain control. * Follow-up pathology. * DVT prophylaxis at all times. * Out of bed to chair. * Total respiratory care/postoperative care as per protocol. * Continue all supportive care. Code Status: Full Code
[2017-02-07 12:00] VITALS: BP 94/50
--- NOTE | 2017-02-07 12:20 | NUR ---
PT DROWSY, OOB WITH ENCOURAGEMENT. MONITOR NSR. RIGHT CHEST TUBE D/C/D BY SURGICAL PA. OCCLUSIVE DSG PLACED. BREASTFEEDING PROGRAM COORDINATOR D/C/D. OOB AMBULATED. STATUS CHANGED TO GEN MED BUT SHE IS TO REMAIN IN ICU PER ISHA. SOMMERS REMAINS IN PLACE.
[2017-02-07 16:00] VITALS: BP 110/70
--- NOTE | 2017-02-07 21:01 | NUR ---
PT IN BETTER SPIITS DENIES PAIN, DDP BREATHING AND COUGHING DONE. RCW DRSGS INTACT. SOMMERS DRAINING QS
[2017-02-07 23:57] VITALS: BP 120/70
[2017-02-08 05:25] LABS: ABSOLUTE BASOPHIL COUNT 0 /CUMM (0.0-0.2); ABSOLUTE EOSINOPHIL COUNT 0.2 /CUMM (0.0-0.7); ABSOLUTE GRANULOCYTE CT 5.8 /CUMM (1.4-6.5); ABSOLUTE LYMPH COUNT 1.4 /CUMM (1.2-3.4); ABSOLUTE MONOCYTE COUNT 0.8 /CUMM (0.10-0.60); BASOPHIL % 0.3 % (0.0-2.0); EOSINOPHIL % 2.4 % (0-5); HEMATOCRIT 32.9 % (37-47); MEAN CORPUSCULAR HGB 28.1 PG (27.0-31.0); MEAN CORPUSCULAR HGB CONC 33.2 G/DL (33.0-37.0); MEAN CORPUSCULAR VOLUME 84.5 FL (81.0-99.0); MEAN PLATELET VOLUME 7.7 FL (7.4-10.4); PLATELET COUNT 186 /CUMM (130-400); RBC DISTRIBUTION WIDTH 13.2 % (11.5-14.5); RED BLOOD CELL CT 3.89 /CUMM (4.20-5.40); WHITE BLOOD CELL COUNT 8.2 /CUMM (4.8-10.8)
--- NOTE | 2017-02-08 06:58 | PN- Thoracic Surgery ---
Subjective Subjective: POD#3 S/P RIGHT MIDDLE LOBECTOMY NO MAJOR ISSUES OVERNIGHT CHEST TUBE REMOVED YESTERDAY DENIES CP, SOB, NO N+V WITH DIET AMBULATING WITH NURSING STAFF AROUND UNIT PAIN CONTROLLED WITH PO PAIN MEDS Objective Vital Signs and I&Os Vital Signs Date Time Temp Pulse Resp B/P B/P Pulse O2 O2 Flow FiO2 Mean Ox Delivery Rate 02/07 2357 99.4 70 16 120/70 92 Room Air / 2116 70 18 120/70 / 2024 97 Room Air / 1600 98.0 70 22 110/70 94 Room Air 07/09 1342 70 100/50 /09 1342 70 100/50 /09 1200 98.0 70 18 94/50 / 0938 92 Room Air / 0800 70 20 90/50 /09 0800 98.0 70 18 92/50 93 Room Air Intake & Output 02/08 0800 07/10 0000 07/09 1600 /09 0800 07/09 0000 07/08 1600 Intake Total 50 300 162 642 7521 1400 Output Total 200 300 966 398 4078 120 Balance -150 0 100 199 08 9734 Intake, IV 40 600 600 600 Intake, Oral 50 300 600 100 700 800 Output, Chest 360 Tube Drainage Output, 20 Drainage Output, Urine 200 300 540 550 850 120 Physical Exam: CV: RRR LUNGS: DECREASED BS IN BASES ABD: SOFT, FLAT, +BS EXT: WARM, DISTAL CMS INTACT SOMMERS WITH CLEAR URINE(REPLACED FOR RETENTION,SEVERE BLADDER PROLAPSE) Assessment/Plan Assessment/Plan SIRGICAL STABLE VOIDING ISSUES W/BLADDER PROLAPSE PLAN F/ AM CXR ?VOIDING TRIAL OR D/C WITH SOMMERS CATH WILL D/W ATTENDING Core Measures/Miscellaneous Venous Thromboembolism VTE Risk Factors: Age > 40, Surgery VTE Contraindications: No Contraindications VTE Diagnosis: No VTE Type: NONE VTE Confirmed by (Test): NONE Beta Osvaldo Is Beta Osvaldo a Home Med? Yes Antibiotics Is Patient on Antibiotics? Yes
[2017-02-08 08:00] VITALS: BP 138/76
--- NOTE | 2017-02-08 08:17 | RADIOLOGY REPORT ---
EXAMINATION: XR PORTABLE CHEST CLINICAL INFORMATION: Chest tube removal on 02/07/2017 status post right middle lobectomy. COMPARISON: CXR from 02/07/2017 TECHNIQUE: Portable frontal view of the chest was obtained. FINDINGS: Right thoracostomy tube has been removed and there is no evidence of pneumothorax. Again noted are small pleural effusions and bibasilar atelectasis. No pulmonary edema or other significant interval change. IMPRESSION: No evidence of pneumothorax after recent right thoracostomy tube removal.
--- NOTE | 2017-02-08 08:25 | PN- Resident CRCU ---
Impression/Plan Plan DVT/Prophylaxis: mechanical Code Status: Full Code
[2017-02-08] MEDS ORDERED: DOCUSATE SODIU100 M3 PO (09:57)
[2017-02-08] MEDS ORDERED: OXYCODONE HCL5 M1 PO (09:57)
--- NOTE | 2017-02-08 10:00 | Patient Discharge Instructions ---
Discharge Instructions General Discharge Information You were seen/treated for: Right middle lobe lung cancer You had these procedures: Right middle lobectomy with mediastinal lymph node dissection Watch for these problems: fever>101, redness/drainage from incisions, worsening pain, worsening short of breath Do not soak the wound: Yes No bath, but you may shower: Yes Other wound care: Clean dry dressing daily. Steristrips will fall off eventually. Special Instructions: call @ for urology follow up appointment for mcelroy catheter management Diet Continue normal diet: Yes Activity Activity Self Limited: Yes Other activity limits: Activity as tolerated. Use PT and assistive devices as needed. Acute Coronary Syndrome Inclusion Criteria At DC or during hospital stay patient has or had the following: ACS DIAGNOSIS No Discharge Core Measures Meds if any: Prescribed or Continued at Discharge Meds if any: NOT Prescribed or Continued at Discharge Congestive Heart Failure Inclusion Criteria At DC or during hospital stay patient has or had the following: CHF DIAGNOSIS No Discharge Core Measures Meds if any: Prescribed or Continued at Discharge Meds if any: NOT Prescribed or Continued at Discharge Cerebrovascular accident Inclusion Criteria At DC or during hospital stay patient has or had the following: CVA/TIA Diagnosis No Discharge Core Measures Meds if any: Prescribed or Continued at Discharge Meds if any: NOT Prescribed or Continued at Discharge Venous thromboembolism Inclusion Criteria VTE Diagnosis No VTE Type NONE VTE Confirmed by (Test) NONE Discharge Core Measures - Per Current guidelines, there needs to be overlap - treatment for the first 5 days of Warfarin therapy. - If discharged on Warfarin prior to 5 days of - overlap therapy, the patient will need to be - assessed for post discharge needs including - *Post discharge parental anticoagulation - *Warfarin and/or parental anticoagulation education - *Follow up date to check INR post discharge At least 5 days overlap therapy as Inpatient No Meds if any: Prescribed or Continued at Discharge Note: Overlap Therapy is Warfarin and Anticoagulant Meds if any: NOT Prescribed or Continued at Discharge
--- NOTE | 2017-02-08 10:18 | PN- CRCU ---
Subjective HPI/Critical Care Issues: I saw the patient today sitting comfortably in bed. conscious, well oriented , afebrile, no overnight events. Has urinary retention, on Rojas cath. Objective Current Medications: Current Medications Sig/Praveen Start time Last Medication Dose Route Stop Time Status Admin Acetaminophen 650 MG Q6-PRN PRN 02/07 0100 AC 02/07 PO 0223 Albuterol Sulfate 3 ML EVERY 4 HRS/AWAKE 02/07 1200 AC 02/08 INH 0814 Albuterol Sulfate 3 ML Q4 02/05 1800 DC 02/07 INH 0936 Aspirin Buffered 81 MG DAILY 02/06 1000 AC 02/08 PO 1015 Atorvastatin Calcium 10 MG 1700 02/05 1700 AC 02/07 PO 1500 Carvedilol 6.25 MG BID 02/05 2200 AC 02/08 PO 1016 Docusate Sodium 100 MG BID 02/05 2200 AC 02/08 PO 1016 Heparin Sodium 5,000 UNIT Q8 02/05 1400 AC 02/08 (Porcine) SC 0508 Hydromorphone HCl 1 MG Q2-3 HRS NEEDED.. 02/07 1000 AC IV Ketorolac 15 MG Q6P PRN 02/07 1000 AC 02/08 Tromethamine IV 0015 Lisinopril 10 MG DAILY 02/06 1000 AC 02/08 PO 1015 Oxycodone HCl 5 MG Q4-6 PRN PRN 02/07 1000 AC PO Oxycodone HCl 10 MG Q4-6 PRN PRN 02/07 1000 AC PO Vital Signs & I&O Last 24 Hrs of Vitals and I&O: Vital Signs Date Time Temp Pulse Resp B/P B/P Pulse O2 O2 Flow FiO2 Mean Ox Delivery Rate 02/08 1016 78 138/72 02/08 1015 78 132/78 02/08 0830 Room Air Room Air 02/08 0800 98.3 65 22 138/76 92 Room Air 02/08 0800 92 Room Air 02/07 2357 99.4 70 16 120/70 92 Room Air 02/07 2116 70 18 120/70 02/07 2024 97 Room Air 02/07 1600 98.0 70 22 110/70 94 Room Air 02/07 1342 70 100/50 02/07 1342 70 100/50 02/07 1200 98.0 70 18 94/50 Intake & Output 02/08 1600 07/10 0800 07/10 0000 Intake Total 50 300 Output Total 200 300 Balance -150 0 Intake, Oral 50 300 Output, Urine 200 300 Patient 118 lb Weight Exam General Appearance: well developed/nourished, alert, awake, comfortable Head: normal appearance Neck: normal inspection, supple Respiratory: normal breath sounds, lungs clear Cardiovascular: regular rate/rhythm Abdomen: normal bowel sounds, soft Impression/Plan Impression/Plan Impression/Plan: Ms. 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 She was admitted to [facility] for RML lobectomy.She underwent a successful CT- guided right middle lobe lung biopsy 01/20/17 which revealed non-small cell CA. Other workups include negative breast including yearly mamography.She underwent a successful RML lobectomy with no evidence of cancer at the bronchial stump intraoperatively. A chest tube was placed and a post-op CXR revealed a possible tiny right apical PTX. plan: Recommendations: * Continue antihypertensive medications. * Continue with pain control. * Follow-up pathology. * DVT prophylaxis at all times. * Total respiratory care/postoperative care as per protocol. * replace elctrolytes if needed. * voiding trials Code Status: Full Code Problem List: 1. Non-small cell cancer of right lung [facility]
[2017-02-08 16:00] VITALS: BP 110/60
--- NOTE | 2017-02-08 23:00 | NUR ---
PT ARRIVED ON FLOOR AT 2200 FROM ICU. REPORT RECD FROM JOSEPH PETE. PT A&OX3, VSS, AFEBRILE, PT DENIES PAIN AT THIS TIME. PT ON RA, NO DISTRESS, DRSG TO R SIDE LATERAL BACK, C,D,I. R CHEST PUNCT SITE DRSG IN PLACE, C,D,I. SOMMERS IN PLACE DRAINING TO GRAVITY, CLEAR, YELLOW URINE. #18 LAC PATENT. PT ORIENTED TO ROOM/FLOOR.
[2017-02-08 23:39] VITALS: BP 109/60
[2017-02-09 07:11] VITALS: BP 144/74
--- NOTE | 2017-02-09 07:21 | PN- Thoracic Surgery ---
Subjective Subjective: Required mcelroy catheter insertion for inability to void. Apparently no prior history. She anticipates being discharge today. Apparently PT cleared her doing stairs yesterday, so she is cleared to go home from the description of the notes. Objective Vital Signs and I&Os Vital Signs Date Time Temp Pulse Resp B/P B/P Pulse O2 O2 Flow FiO2 Mean Ox Delivery Rate 02/09 711 99.1 75 16 144/74 92 Room Air 02/09 0000 Room Air 02/08 2339 98.8 80 20 109/60 92 02/08 2139 65 120/70 02/08 2013 94 Room Air Room Air 02/08 1605 Room Air Room Air 02/08 1600 Room Air 02/08 1600 98.7 68 16 110/60 92 Room Air 02/08 1016 78 138/72 02/08 1015 78 132/78 02/08 0830 Room Air Room Air 02/08 0800 98.3 65 22 138/76 92 Room Air 02/08 0800 92 Room Air Intake & Output 02/09 0802/09 0000 02/08 1600 02/08 0800 02/08 0000 02/07 1600 Intake Total 320 480 50 300 640 Output Total 400 750 200 300 540 Balance -80 -270 -150 0 100 Intake, IV 20 40 Intake, Oral 300 480 50 300 600 Output, Urine 400 750 200 300 540 Patient 118 lb Weight Physical Exam: General - alert & oriented x 3. comfortable. no acute distress. Lungs - clear bilaterally. no w/r/r. Chest - dressings c/d/i. Cardiac - s1s2. Abdomen - soft. nontender. - mcelroy draining clear, yellow urine. Extremities - warm bilaterally. no c/c/e. calves soft and nontender b/l. Current Medications: Current Medications Sig/Praveen Start time Last Medication Dose Route Stop Time Status Admin Acetaminophen 650 MG Q6-PRN PRN 02/07 0100 AC 02/07 PO 0223 Albuterol Sulfate 3 ML BID 02/09 1000 AC INH Albuterol Sulfate 3 ML EVERY 4 HRS/AWAKE 02/07 1200 DC 02/08 INH 2010 Aspirin Buffered 81 MG DAILY 02/06 1000 AC 02/08 PO 1015 Atorvastatin Calcium 10 MG 1700 02/05 1700 AC 02/08 PO 1730 Carvedilol 6.25 MG BID 02/05 2200 AC 02/08 PO 2139 Docusate Sodium 100 MG BID 02/05 2200 AC 02/08 PO 2139 Heparin Sodium 5,000 UNIT Q8 02/05 1400 AC 02/09 (Porcine) SC 0615 Hydromorphone HCl 1 MG Q2-3 HRS NEEDED.. 02/07 1000 AC IV Ketorolac 15 MG Q6P PRN 02/07 1000 AC 02/08 Tromethamine IV 2143 Lisinopril 10 MG DAILY 02/06 1000 AC 02/08 PO 1015 Oxycodone HCl 5 MG Q4-6 PRN PRN 02/07 1000 AC PO Oxycodone HCl 10 MG Q4-6 PRN PRN 02/07 1000 AC PO Results Last 48 Hours of Labs: Laboratory Tests 02/08 0515 Chemistry Sodium (137 - 145 mmol/L) 137 Potassium (3.5 - 5.1 mmol/L) 4.1 Chloride (98 - 107 mmol/L) 103 Carbon Dioxide (22 - 30 mmol/L) 29 Anion Gap (5 - 16) 5 BUN (7 - 17 mg/dL) 11 Creatinine (0.5 - 1.0 mg/dL) 0.7 Estimated GFR (>60 ml/min) > 60 BUN/Creatinine Ratio (7 - 25 %) 15.7 Hematology CBC w Diff NO MAN DIFF REQ WBC (4.8 - 10.8 /CUMM) 8.2 RBC (4.20 - 5.40 /CUMM) 3.89 L Hgb (12.0 - 16.0 G/DL) 10.9 L Hct (37 - 47 %) 32.9 L MCV (81.0 - 99.0 FL) 84.5 MCH (27.0 - 31.0 PG) 28.1 RDW (11.5 - 14.5 %) 13.2 Plt Count (130 - 400 /CUMM) 186 MPV (7.4 - 10.4 FL) 7.7 Gran % (42.2 - 75.2 %) 71.0 Lymphocytes % (20.5 - 51.1 %) 16.9 L Monocytes % (1.7 - 9.3 %) 9.4 H Eosinophils % (0 - 5 %) 2.4 Basophils % (0.0 - 2.0 %) 0.3 Absolute Granulocytes (1.4 - 6.5 /CUMM) 5.8 Absolute Lymphocytes (1.2 - 3.4 /CUMM) 1.4 Absolute Monocytes (0.10 - 0.60 /CUMM) 0.8 H Absolute Eosinophils (0.0 - 0.7 /CUMM) 0.2 Absolute Basophils (0.0 - 0.2 /CUMM) 0 PUBS MCHC (33.0 - 37.0 G/DL) 33.2 Assessment/Plan Assessment/Plan This 76 year old female is POD#4 s/p RM Lobectomy, with mcelroy re-inserted overnight for retention complicated by prolapse currently not requiring narcotics for pain mcelroy in place for urinary retention. will d/w case management. to f/u with as outpatient continue IS oob/ambulating. cleared stairs yesterday hep sc - dvt ppx d/c today, likely home with services will d/w Core Measures/Miscellaneous Venous Thromboembolism VTE Risk Factors: Age > 40, Surgery VTE Contraindications: No Contraindications VTE Diagnosis: No VTE Type: NONE VTE Confirmed by (Test): NONE Beta Osvaldo Is Beta Osvaldo a Home Med? Yes Antibiotics Is Patient on Antibiotics? Yes
[2017-02-09] MEDS ORDERED: TYLENOL325 M1 PO (07:33)
--- NOTE | 2017-02-09 09:28 | Surgical Discharge Summary ---
Visit Information Visit Dates Admission Date: 02/05/17 Discharge Date: 02/09/17 History of Present Illness Chief Complaint: See admitting H&P Medical History Blood Transfusion Hx: No Neurological: NONE Cardiovascular: hypertension Respiratory: LUNG CA FORMER SMOKER Gastrointestinal: COLON CA History of MRSA: No History of VRE: No History of CDIFF: No Isolation History: Standard Pneumonia Vaccine: 04/11/08 Influenza Vaccine: 05/31/08 Surgical History Pertinent Surgical History: APPY COLON RX CERVICAL FUSION Psychosocial History Where Do You Live? Home Who Do You Live With? Spouse Services at Home: None What is Your Primary Language? [place] Review of Systems: See admitting H&P Hospital Course Course Attending Physician: RICHA REDDY,MARTHA Arteaga JR Primary Care Physician: DOMINGO REDDY,NICOLE Flynn Hospital Course: The patient was admitted on 02/05/2017. She is brought to the operating theater later that day where she underwent a right middle lobectomy. Postoperatively the patient progressed as expected, her pain was under adequate control, her chest tube was removed, and she was oxygenating adequately on minimal requirements. The patient had issues with postoperative voiding due to bladder prolapse and a Rojas was placed. The patient was discharged with a Rojas catheter and instructions to follow-up with Dr. Ash. The patient worked with physical therapy. She was discharged with an uneventful hospital course. Allergies: Coded Allergies: No Known Allergies (02/01/17) Significant Procedures: Right middle lobectomy Disposition Summary Disposition Principal Diagnosis: Right lung mass Additional Diagnosis: Bladder prolapse Discharge Disposition: SNF Discharge Instructions General Discharge Information Code Status: Full Code Patient's Diet: Heart healthy Patient's Activity: Self-limited No lifting more than 10 pounds Follow-Up Instructions/Appts: Call the office to be seen in approximately [address] Interiano Call the office to be seen in approximately 2-[address] Ash Medications at Discharge Discharge Medications: Continue taking these medications: Aspirin (Ecotrin*) 81 MG TABLET. 1 Tablet ORAL DAILY Carvedilol (Coreg) 6.25 MG TABLET 1 Tablet ORAL TWICE DAILY Quinapril HCl (Quinapril HCl) 10 MG TABLET 1 Tablet ORAL DAILY Simvastatin (Zocor*) 20 MG TABLET 1 Tablet ORAL DAILY Start taking the following new medications: Oxycodone HCl (Oxycodone HCl) 5 MG TABLET 5 Milligram ORAL EVERY 4-6 HOURS NEEDED as needed for PAIN SCALE 7-10 ( SEVERE) Qty = 18 No Refills Docusate Sodium (Docusate Sodium) 100 MG CAPSULE 100 Milligram ORAL TWICE DAILY as needed for constipation Days = 14 No Refills Acetaminophen (Tylenol) 325 MG TABLET 650 Milligram ORAL EVERY 6 HOURS NEEDED as needed for pain control Days = 7 No Refills
[2017-02-09 09:41] VITALS: BP 140/80
== END 2017-02-09 11:05 | DRG 164 ==
LOC: DELPENDDIS → SDA 02-05 01:34 → CRI 02-05 01:34 → ENRESERV 02-05 11:47 → ENTRNSPT 02-05 12:15 → EDTRNSPTSTS 02-05 12:30 → CMPTRNSPT 02-05 12:52 → CRI 02-05 13:08 → 2NB 02-08 22:28 → ENPENDDIS 02-09 07:48 → 2NB 02-09 11:05
PROVIDERS: Internal Medicine Endocrinology, Diabetes & Metabolism; Physician Assistant Surgical; ADMIT Thoracic Surgery (Cardiothoracic Vascular Surgery)
PROC: 0BBD0ZZ Excision of Right Middle Lung Lobe, Open Approach (ICD-10-PCS; principal; 2017-02-05)
PROC: 07B70ZX Excision of Thorax Lymphatic, Open Approach, Diagnostic (ICD-10-PCS; 2017-02-05)
DX: C34.2 Malignant neoplasm of middle lobe, bronchus or lung (principal); J98.11 Atelectasis; R71.0 Precipitous drop in hematocrit; I10 Essential (primary) hypertension; J95.89 Other postprocedural complications and disorders of respiratory system, not elsewhere classified; J95.811 Postprocedural pneumothorax; F17.210 Nicotine dependence, cigarettes, uncomplicated; N81.10 Cystocele, unspecified; Z85.038 Personal history of other malignant neoplasm of large intestine; Z98.1 Arthrodesis status; E78.5 Hyperlipidemia, unspecified; Y84.8 Other medical procedures as the cause of abnormal reaction of the patient, or of later complication, without mention of misadventure at the time of the procedure; Y92.234 Operating room of hospital as the place of occurrence of the external cause
CPT/HCPCS: 2NBP; CCU; 36415; 82436; 87086; 97116-GO; 97161-GP; C9290; J0131; J0690; J1100; J1170; J1644; J2405

== ENCOUNTER → 2018-03-15 | Day surgery (SDC) | payer OTHER, BC, MEDICARE ==
[~2018-03-15] VITALS: Ht 172.7 cm; Wt 53.1 kg
[~2018-03-15] MED LIST changes: +DILTIAZEM 24HR120 MG PO; +DOCUSATE SODIU100 M3 PO; +KEFLEX250 M1 PO; +KEFLEX500 M1 PO; +OMEPRAZOLE20 M2 PO; +OMEPRAZOLE40 M1 PO; +OXYCODONE HCL5 M1 PO; +TYLENOL325 M1 PO
--- NOTE | 2018-03-15 11:03 | Operative Report ---
Operative/Inv Procedure Report Surgery Date: 03/15/18 Name of Procedure: Cataract extraction with intraocular lens implantation right eye Pre-Operative Diagnosis: Age-related cataract right eye Post-Operative Diagnosis: Same Estimated Blood Loss: none Surgeon/Baggage Clerk: Andrew REDDY,[place] Anesthesia: local monitored anesthesi Complications: None Operative/Procedure Note Note: Preoperatively the patient was noted to have counting fingers vision in the right eye . The risks, benefits, and alternatives to surgery were discussed at length with the patient. Informed consent was obtained. The patient was brought to the operating room where the right eye was prepped and draped in the normal sterile fashion. A speculum was placed on the right eye with good exposure. A stab incision was made using a paracentesis blade. Intracameral lidocaine was placed. Viscoelastic was used to form the anterior chamber. A clear corneal incision was made using keratome blade. A continuous curvilinear capsulorrhexis was made using a cystotome needle followed by Utrata forceps. There was no extension of the rhexis. Hydrodissection was performed using balanced salt solution. The cataract was removed using a stop and chop technique. Residual cortex was removed using coaxial irrigation and aspiration. The capsule was polished using irrigation and aspiration and the posterior capsule was cleaned using a balanced salt solution jet. There was no residual lens material inside the eye. The capsular bag was reformed using viscoelastic. An intraocular lens [id number] of power 18.5 was verified and confirmed. It was loaded into an injector and injected into the eye. The lens was placed entirely within the capsular bag. Viscoelastic was evacuated using irrigation and aspiration. The wounds were stromally hydrated and the eye filled to physiologic pressure using balanced salt solution. Intracameral cefuroxime was placed. Speculum was removed and a shield was placed on the eye. The patient was brought to the recovery area without incident. Instructions were given to follow-up the next day for routine postoperative care.
== END ==
LOC: STS 03:00
DX: H25.9 Unspecified age-related cataract (principal); Z85.118 Personal history of other malignant neoplasm of bronchus and lung
CPT/HCPCS: J2250; V2632